=== PATIENT | female | born 1980 | race Caucasian/White ===

== ENCOUNTER 2017-07-21 19:18 | Emergency (ER) | payer MEDICAID ==
[~2017-07-21] VITALS: Ht 152.4 cm; Wt 93.0 kg
[2017-07-21 19:30] VITALS: BP 129/76
[2017-07-21 20:31] LABS: BASOPHILS # (AUTO) 0.1 K/uL (0.00-0.22); EOSINOPHILS # (AUTO) 0.1 K/uL (0-0.4); EOSINOPHILS % (AUTO) 1.6 % (0.0-4.0); HEMOGLOBIN 7.7 g/dL (12.0-16.0); LYMPHOCYTES # (AUTO) 1.6 K/uL (2.5-16.5); LYMPHOCYTES % (AUTO) 20.5 % (20.5-51.1); MEAN CORPUSCULAR HEMOGLOBIN 21 pg (27-31); MEAN CORPUSCULAR HGB CONC 31 g/dL (33-37); MEAN CORPUSCULAR VOLUME 66.5 fL (80-94); MONOCYTES # (AUTO) 0.5 K/uL (0.8-1.0); MONOCYTES % (AUTO) 5.9 % (1.7-9.3); NEUTROPHILS # (AUTO) 5.6 K/uL (1.8-7.7); PLATELET COUNT (AUTO) 231 K/uL (140-450); RED BLOOD CELL COUNT(AUTO) 3.76 MIL/uL (4.20-5.40); RED CELL DISTRIBUTION WIDTH 25.8 % (11.6-13.7); WHITE BLOOD COUNT (AUTO) 7.8 K/uL (4.8-10.8)
[2017-07-21 21:58] VITALS: BP 135/81
== END 2017-07-21 21:50 | disposition home or self-care (01) ==
LOC: MED 19:18
DX: O99.012 Anemia complicating pregnancy, second trimester (principal); D64.9 Anemia, unspecified; Z3A.16 16 weeks gestation of pregnancy; Z88.0 Allergy status to penicillin
CPT/HCPCS: 36415; 76805; 81002; 81025; 85025; 99285; Q0092

== ENCOUNTER 2017-12-25 07:17 | Inpatient (IN) | payer MEDICAID ==
[~2017-12-25] VITALS: Ht 152.4 cm; Wt 95.3 kg
[2017-12-25] MEDS ORDERED: FERR-252 PO (07:56)
[2017-12-25] MEDS ORDERED: PREN-380 PO (07:56)
[2017-12-25] MEDS ORDERED: LACTATED RINGERS 1,000 ML IV SCH (07:56)
[2017-12-25] MEDS ORDERED: CLINDAMYCIN 900 MG in DEXTROSE 5% 100 ML IV SCH (08:00)
--- NOTE | 2017-12-25 08:04 | NUR ---
PATIENT HAS BEEN SCREENED AND CATEGORIZED LOW NUTRITION RISK. PATIENT WILL BE SEEN WITHIN 7 DAYS OF ADMISSION. 12/31/[address]
[2017-12-25] MEDS ORDERED: CITRIC ACID/SODIUM CITRATE 30 ML UDC PO SCH (08:30)
[2017-12-25] MEDS ORDERED: TRA200 PO (08:43)
[2017-12-25] MEDS ORDERED: ASPI81CT89 PO (08:45)
[2017-12-25 08:55] LABS: BASOPHILS # (AUTO) 0.1 K/uL (0.00-0.22); BASOPHILS % (AUTO) 0.8 % (0.0-2.0); EOSINOPHILS # (AUTO) 0.1 K/uL (0-0.4); EOSINOPHILS % (AUTO) 0.8 % (0.0-4.0); HEMATOCRIT 36.9 % (36-48); HEMOGLOBIN 12.7 g/dL (12.0-16.0); LYMPHOCYTES # (AUTO) 1.5 K/uL (2.5-16.5); LYMPHOCYTES % (AUTO) 19.7 % (20.5-51.1); MEAN CORPUSCULAR HEMOGLOBIN 32 pg (27-31); MEAN CORPUSCULAR HGB CONC 34 g/dL (33-37); MONOCYTES # (AUTO) 0.6 K/uL (0.8-1.0); MONOCYTES % (AUTO) 7.5 % (1.7-9.3); NEUTROPHILS # (AUTO) 5.4 K/uL (1.8-7.7); NEUTROPHILS % (AUTO) 71.2 % (42.2-75.2); PLATELET COUNT (AUTO) 144 K/uL (140-450); RED BLOOD CELL COUNT(AUTO) 3.96 MIL/uL (4.20-5.40); RED CELL DISTRIBUTION WIDTH 13.3 % (11.6-13.7); WHITE BLOOD COUNT (AUTO) 7.6 K/uL (4.8-10.8)
[2017-12-25 08:59] LABS: APPEARANCE,URINE CLOUDY (CLEAR); BLOOD, URINE TRACE (NEGATIVE); COLOR,URINE YELLOW (YELLOW); PH,URINE 6.5 (5.0-9.0); UGLUCOSE NEGATIVE (NEGATIVE)
[2017-12-25 09:00] LABS: BILIRUBIN,URINE NEGATIVE (NEGATIVE); NITRITE, URINE NEGATIVE (NEGATIVE)
[2017-12-25 09:01] LABS: LEUKOCYTE ESTERASE ,URINE 3+ (NEGATIVE)
[2017-12-25 09:46] LABS: RBC,URINE 0-5 (RARE) /HPF (0-5); WBC,URINE 6-15 (FEW) /HPF (0-5)
[2017-12-25 09:46] LABS: ALBUMIN 2.7 g/dL (3.4-5.0); ANION GAP 13.3 (8-16); CARBON DIOXIDE 22.5 mmol/L (21-32); CREATININE 0.6 mg/dL (0.6-1.3); POTASSIUM 3.8 mmol/L (3.5-5.1); TOTAL BILIRUBIN 1.3 mg/dL (0.0-1.0)
[2017-12-25] MEDS ORDERED: MORPHINE PRES FREE 2 MG/2 ML 2 mL UD SYRINGE ONE (10:39)
[2017-12-25] MEDS ORDERED: ePHEDrine 50 MG/ML VIAL ONE (10:40)
[2017-12-25] MEDS ORDERED: METOCLOPRAMIDE 10 MG/2 ML INJ VIAL ONE (10:40)
[2017-12-25] MEDS ORDERED: ONDANSETRON 4 MG/2 ML VIAL ONE (10:40)
[2017-12-25] MEDS ORDERED: BUPIVACAINE/DEXT 0.75% SPINAL 2 ML AMP INJ ONE (10:40)
[2017-12-25] MEDS ORDERED: CARBOPROST 250 MCG/ML AMP IM ONE (12:54)
[2017-12-25] MEDS ORDERED: NALOXONE 0.4 MG/ML VIAL IVP PRN ×2 (13:05)
[2017-12-25] MEDS ORDERED: ONDANSETRON 4 MG/2 ML VIAL IVP PRN (13:05)
[2017-12-25] MEDS ORDERED: diphenhydrAMINE 50 MG/ML VIAL IVP PRN (13:05)
[2017-12-25 14:43] LABS: BASOPHILS # (AUTO) 0.1 K/uL (0.00-0.22); BASOPHILS % (AUTO) 0.5 % (0.0-2.0); EOSINOPHILS # (AUTO) 0.1 K/uL (0-0.4); EOSINOPHILS % (AUTO) 0.3 % (0.0-4.0); HEMOGLOBIN 8.7 g/dL (12.0-16.0); LYMPHOCYTES # (AUTO) 1.1 K/uL (2.5-16.5); MEAN CORPUSCULAR HEMOGLOBIN 31 pg (27-31); MEAN CORPUSCULAR HGB CONC 33 g/dL (33-37); MEAN CORPUSCULAR VOLUME 94.2 fL (80-94); MONOCYTES # (AUTO) 0.5 K/uL (0.8-1.0); MONOCYTES % (AUTO) 3.3 % (1.7-9.3); NEUTROPHILS # (AUTO) 13.9 K/uL (1.8-7.7); NEUTROPHILS % (AUTO) 88.9 % (42.2-75.2); PLATELET COUNT (AUTO) 159 K/uL (140-450); RED BLOOD CELL COUNT(AUTO) 2.76 MIL/uL (4.20-5.40); RED CELL DISTRIBUTION WIDTH 13.3 % (11.6-13.7); WHITE BLOOD COUNT (AUTO) 15.6 K/uL (4.8-10.8)
[2017-12-25] MEDS ORDERED: OXYTOCIN 20 UNITS/LR PREMIX 1,000 ML IV ONE (15:45)
[2017-12-25] MEDS ORDERED: MEASLES, MUMPS, AND RUBELLA 1 VIAL SQVAC PRN (16:55)
[2017-12-25] MEDS: CLINDAMYCIN 900 MG in DEXTROSE 5% 100 ML IV SCH (20:16)
[2017-12-25 21:27] LABS: BASOPHILS % (AUTO) 0.1 % (0.0-2.0); EOSINOPHILS % (AUTO) 0.2 % (0.0-4.0); HEMATOCRIT 21.3 % (36-48); HEMOGLOBIN 7.3 g/dL (12.0-16.0); LYMPHOCYTES # (AUTO) 1.2 K/uL (2.5-16.5); LYMPHOCYTES % (AUTO) 6.6 % (20.5-51.1); MEAN CORPUSCULAR HEMOGLOBIN 32 pg (27-31); MEAN CORPUSCULAR HGB CONC 35 g/dL (33-37); MEAN CORPUSCULAR VOLUME 92.9 fL (80-94); MONOCYTES # (AUTO) 0.8 K/uL (0.8-1.0); MONOCYTES % (AUTO) 4.6 % (1.7-9.3); NEUTROPHILS # (AUTO) 15.8 K/uL (1.8-7.7); NEUTROPHILS % (AUTO) 88.5 % (42.2-75.2); PLATELET COUNT (AUTO) 134 K/uL (140-450); RED BLOOD CELL COUNT(AUTO) 2.29 MIL/uL (4.20-5.40); RED CELL DISTRIBUTION WIDTH 13.3 % (11.6-13.7); WHITE BLOOD COUNT (AUTO) 17.9 K/uL (4.8-10.8)
[2017-12-25] MEDS ORDERED: FUROSEMIDE 20 MG/2 ML VIAL IVP SCH (22:45)
[2017-12-26] MEDS ORDERED: OXYTOCIN 20 UNITS/LR PREMIX 1,000 ML IV ONE (00:57)
[2017-12-26] MEDS: OXYTOCIN 20 UNITS in LACTATED RINGERS 1,000 ML IV SCH ×2 (00:58→10:09)
[2017-12-26] MEDS ORDERED: FUROSEMIDE 20 MG/2 ML VIAL IVP SCH (03:00)
[2017-12-26] MEDS: KETOROLAC 30 MG/ML VIAL IVP PRN ×3 (04:04→18:27)
[2017-12-26] MEDS: CLINDAMYCIN 900 MG in DEXTROSE 5% 100 ML IV SCH ×2 (04:11→12:01)
[2017-12-26 10:20] LABS: BASOPHILS % (AUTO) 0.2 % (0.0-2.0); EOSINOPHILS % (AUTO) 0.2 % (0.0-4.0); HEMATOCRIT 23.3 % (36-48); HEMOGLOBIN 7.9 g/dL (12.0-16.0); LYMPHOCYTES # (AUTO) 1.4 K/uL (2.5-16.5); LYMPHOCYTES % (AUTO) 12.4 % (20.5-51.1); MEAN CORPUSCULAR HEMOGLOBIN 31 pg (27-31); MEAN CORPUSCULAR HGB CONC 34 g/dL (33-37); MEAN CORPUSCULAR VOLUME 91.4 fL (80-94); MONOCYTES # (AUTO) 0.8 K/uL (0.8-1.0); MONOCYTES % (AUTO) 7.1 % (1.7-9.3); NEUTROPHILS # (AUTO) 8.8 K/uL (1.8-7.7); NEUTROPHILS % (AUTO) 80.1 % (42.2-75.2); PLATELET COUNT (AUTO) 99 K/uL (140-450); RED BLOOD CELL COUNT(AUTO) 2.55 MIL/uL (4.20-5.40); RED CELL DISTRIBUTION WIDTH 14.8 % (11.6-13.7)
[2017-12-27] MEDS: HYDROmorphone 1 MG/ML AMP IVP PRN ×2 (00:53→06:11)
[2017-12-27] MEDS ORDERED: INFLUENZA VIRUS VACCINE QUAD 0.5 ML SYR IMVAC PRN (07:50)
[2017-12-27] MEDS ORDERED: SODIUM PHOSPHATE 118 ML ENEM RC PRN (08:00)
[2017-12-27] MEDS: BISACODYL 5 MG TABEC PO SCH (08:14)
[2017-12-27] MEDS: SIMETHICONE 80 MG TAB.CHEW PO SCH ×3 (08:14→18:18)
[2017-12-27] MEDS: DOCUSATE SODIUM 100 MG GELCAP PO SCH (08:14)
[2017-12-27] MEDS ORDERED: oxyCODONE/APAP 5/325 MG 1 TAB TAB PO SCH (15:01)
[2017-12-27] MEDS: oxyCODONE/APAP 5/325 MG 1 TAB TAB PO PRN (21:38)
[2017-12-28] MEDS: oxyCODONE/APAP 5/325 MG 1 TAB TAB PO PRN ×4 (04:18→22:37)
[2017-12-28] MEDS: SIMETHICONE 80 MG TAB.CHEW PO SCH ×2 (10:25→14:24)
[2017-12-29] MEDS: oxyCODONE/APAP 5/325 MG 1 TAB TAB PO PRN ×2 (04:59→12:58)
[2017-12-29] MEDS: SIMETHICONE 80 MG TAB.CHEW PO SCH (07:53)
[2017-12-29] MEDS: BISACODYL 5 MG TABEC PO SCH (07:53)
[2017-12-29] MEDS: DOCUSATE SODIUM 100 MG GELCAP PO SCH (07:54)
== END 2017-12-29 15:30 | disposition home or self-care (01) | DRG 540 ==
LOC: MLD 07:17 → MFCC 15:25
PROVIDERS: ADMIT Obstetrics & Gynecology; ATTEND Obstetrics & Gynecology
PROC: 30233N1 Transfusion of Nonautologous Red Blood Cells into Peripheral Vein, Percutaneous Approach (ICD-10-PCS; 2017-12-25)
PROC: 3E0234Z Introduction of Serum, Toxoid and Vaccine into Muscle, Percutaneous Approach (ICD-10-PCS; 2017-12-25)
PROC: 0UL70CZ Occlusion of Bilateral Fallopian Tubes with Extraluminal Device, Open Approach (ICD-10-PCS; 2017-12-25)
PROC: 0UB90ZZ Excision of Uterus, Open Approach (ICD-10-PCS; 2017-12-25)
PROC: 0HB7XZZ Excision of Abdomen Skin, External Approach (ICD-10-PCS; 2017-12-25)
PROC: 10D00Z1 Extraction of Products of Conception, Low, Open Approach (ICD-10-PCS; principal; 2017-12-25 10:30)
PROC: 3E02340 Introduction of Influenza Vaccine into Muscle, Percutaneous Approach (ICD-10-PCS; 2017-12-27)
DX: O34.211 Maternal care for low transverse scar from previous cesarean delivery (principal); O34.13 Maternal care for benign tumor of corpus uteri, third trimester; Z23 Encounter for immunization; Z37.0 Single live birth; Z3A.39 39 weeks gestation of pregnancy; Z88.0 Allergy status to penicillin; Z30.2 Encounter for sterilization
CPT/HCPCS: 36415; 51702; 80053; 81001; 85025; 86592; 86886; 86900; 86901; 86920; 87081; 87086; 88302; 88307; 90658; 90715; J1170; J1885; J1940; J2270; J2405; J2590; J2765; J3490; J7060; J7120; P9016